=== PATIENT | male | born 1935 | race African-American/Black ===

== ENCOUNTER 2020-06-22 15:05 | Inpatient (IN) | payer MEDICARE ==
[~2020-06-22] VITALS: Ht 191.8 cm; Wt 83.5 kg
[~2020-06-22 15:05] MED LIST: BOUDREAUXS113 GM TP; CARDURA4 MG PO; COUMADIN4 MG OR; COUMADIN5 MG PO; DULCOLAX10 MG/SUPP RC; HUMALOG 30100 UNITS/ SC; HUMULIN 70100 UNIT/1 SQ; LOTRISONE LOTIO30 ML TP; MIRALAX17 GM PO; MOBIC7.5 MG PO; NORCO 10/325 TA1 TA1 PO; ONDANSETRON4 MG/2 M3 IV; OXYCONTIN10 MG PO; PRILOSEC20 MG PO; PROTONIX40 MG PO; SENOKOT-S TABLE1 TAB PO; SODIUM BICARBO650 MG PO; VIBRAMYCIN 100100 MG PO; ZESTRIL20 MG PO; ZOCOR20 MG PO
[2020-06-22 16:11] LABS: BASOPHILS 0.2 % (0-2); EOSINOPHILS 0.9 % (0-7); HEMATOCRIT 27.4 % (42.0-54.0); HEMOGLOBIN 8.6 g/dL (13.5-17.5); IMMATURE GRANULOCYTES 0.1 % (0-5); LYMPHOCYTES 24.3 % (15-50); MCH 23.9 pg (26.0-34.0); MCHC 31.4 g/dL (31.0-37.0); MCV 76.1 fL (80.0-100.0); MONOCYTES 5.7 % (2-11); NEUTROPHILS 68.8 % (40-80); PLATELET COUNT 304 10x3/uL (130-400); RDW 15.1 % (11.5-14.5); WBC 9.4 10x3/uL (4.8-10.8)
[2020-06-22 16:17] VITALS: BP 128/81
[2020-06-22 16:21] LABS: APTT 40.5 SECONDS (22.8-39.4); INR 1.21 (0.85-1.17); PROTIME 15.2 SECONDS (11.6-15.0)
[2020-06-22 16:23] LABS: CALC OSMOLALITY 285 mosm/kg (275-300); CALCIUM 8.5 mg/dL (8.5-10.1); CARBON DIOXIDE 21.3 mmol/L (21.0-32.0); CHLORIDE - SERUM 106 mmol/L (98-107); CREATININE - SERUM 1.9 mg/dL (0.6-1.3); POTASSIUM - SERUM 3.1 mmol/L (3.5-5.1); SODIUM 138 mmol/L (136-145); UREA NITROGEN 41 mg/dL (7-18); eGFR NON AFRICAN AMERICAN 36 mL/min (90-120)
[2020-06-22 16:25] LABS: GLUCOSE 96 mg/dL (74-106)
[2020-06-22 16:44] LABS: ALBUMIN 2.1 g/dL (3.4-5.0); ALKALINE PHOSPHATASE 106 U/L (30-120); ALT (SGPT) 25 U/L (10-68); BILIRUBIN - TOTAL 0.25 mg/dL (0.2-1.3); CKMB 4.1 U/L (0.0-3.6); CREATINE KINASE 310 UL (21-232); MAGNESIUM - SERUM 1.7 mg/dL (1.8-2.4); PROTEIN - SERUM 7.9 g/dL (6.4-8.2)
[2020-06-22 16:47] LABS: TROPONIN-I 2.922 ng/mL (0.000-0.060)
--- NOTE | 2020-06-22 17:57 | NUR ---
PT ASSISTED UP TO THE SIDE OF THE BED TO USE THE URINAL, PT HAD A VERY LARGE SOFT SAN STOOL, AND VOIDED APPROX 350 ML OF URINE, TEENA CARE WAS DONE, AND A COMPLETE LINEN CHANGED
--- NOTE | 2020-06-22 18:05 | NUR ---
PT STATED THAT SHE WAS LEAVING DUE TO OVER HEARING SOMEONE TALKING TO HER BOYFRIEND, PT STATES THAT SHE WANTED HER IV AND DID NOT WANT ANYMORE TREATMENTS. IV REMOVED, CATH INTACT, DRESSING PLACED OVER SITE WITH BLEEDING CONTROLLED. PT AMBUALTED TO THE EXIT WITHOUT DISTRESS OR ASSISSTANCE
[2020-06-22 19:06] VITALS: BP 112/56
--- NOTE | 2020-06-22 19:16 | NUR ---
REPORT TO RAY HENRY
[2020-06-22 21:30] VITALS: BP 111/50
[2020-06-22 22:34] LABS: CKMB 4.5 U/L (0.0-3.6); CREATINE KINASE 331 UL (21-232)
[2020-06-22 22:39] LABS: TROPONIN-I 2.758 ng/mL (0.000-0.060)
[2020-06-23 01:09] VITALS: BP 112/63
--- NOTE | 2020-06-23 02:20 | NUR ---
RECEIVED FROM ER, WILL ASSUME CARE OF PT, IV-20G.-RAC-ALEXEIZEM @5, PLACED ON TELEMTRY, MEDS AND HISTORY COMPLETE, BED IS LOW, SRX2, CALL LIGHT IN REACH, WILL CONTINUE PLAN OF CARE
[2020-06-23] MEDS ORDERED: MAG-OX 400 MG400 MG PO (02:24)
[2020-06-23] MEDS ORDERED: ACETAMINOPHEN325 MG PO (02:25)
[2020-06-23] MEDS ORDERED: LEVEMIR IN100 UNITS/ (02:27)
[2020-06-23] MEDS ORDERED: ASCORBIC ACID500 MG PO (02:28)
[2020-06-23] MEDS ORDERED: NOVOLOG100 UNIT/1 SC (02:30)
[2020-06-23] MEDS ORDERED: ULTRAM50 MG PO (02:31)
[2020-06-23] MEDS ORDERED: ZOCOR20 MG PO (02:32)
[2020-06-23] MEDS ORDERED: SODIUM BICARBO650 MG PO (02:33)
[2020-06-23] MEDS ORDERED: TOPROL XL25 MG PO (02:34)
[2020-06-23] MEDS ORDERED: IMODIUM2 MG (02:36)
[2020-06-23] MEDS ORDERED: BAYER CHEWABLE81 MG PO (02:36)
[2020-06-23] MEDS ORDERED: CHLORTHALIDONE25 MG PO (02:37)
[2020-06-23] MEDS ORDERED: FLOMAX0.4 MG PO (02:39)
[2020-06-23] MEDS ORDERED: MULTI-DAY VITAM1 TAB PO (02:40)
[2020-06-23 04:06] VITALS: BP 107/80; BMI 22.7
--- NOTE | 2020-06-23 08:00 | NUR ---
PT LAYING SUPINE. VERY IRRITABLE AND DEMANDING. STATES HE IS HUNGRY AND THINKS WE ARE TRYING TO KILL HIM BY STARVATION. PT WAS NPO FOR CARDIAC CONSULT. CALLED AND SPOKE WITH DR. FELTON AND HE SAID PT COULD EAT. BROUGHT TRAY IN. ASSISTED WITH SETTING UP MEAL. PT HAD A SOFT BM X1, DANETTE/PALE COLORED. CLEANED UP, LINENS CHANGED. REPOSITIONED TO COMFORT. CALL LIGHT WTIHIN REACH. BED IN LOWEST POSITION. WILL CONTINUE TO MONITOR.
[2020-06-23 09:07] VITALS: BP 130/85
[2020-06-23 09:35] LABS: BASOPHILS 0.3 % (0-2); EOSINOPHILS 1.3 % (0-7); HEMATOCRIT 27.6 % (42.0-54.0); HEMOGLOBIN 8.7 g/dL (13.5-17.5); IMMATURE GRANULOCYTES 0.1 % (0-5); LYMPHOCYTES 28.1 % (15-50); MCH 23.9 pg (26.0-34.0); MCHC 31.5 g/dL (31.0-37.0); MCV 75.8 fL (80.0-100.0); MEAN PLATELET VOLUME 9.6 fL (7.4-10.4); MONOCYTES 8.2 % (2-11); PLATELET COUNT 324 10x3/uL (130-400); RBC 3.64 10x6/uL (4.20-6.10); RDW 15.1 % (11.5-14.5); WBC 7.8 10x3/uL (4.8-10.8)
[2020-06-23 10:07] LABS: ALBUMIN 1.8 g/dL (3.4-5.0); ALKALINE PHOSPHATASE 100 U/L (30-120); ALT (SGPT) 27 U/L (10-68); BILIRUBIN - TOTAL 0.26 mg/dL (0.2-1.3); CALCIUM 8.4 mg/dL (8.5-10.1); CARBON DIOXIDE 24.2 mmol/L (21.0-32.0); CHLORIDE - SERUM 109 mmol/L (98-107); CKMB 3.5 U/L (0.0-3.6); CREATININE - SERUM 1.7 mg/dL (0.6-1.3); POTASSIUM - SERUM 3.1 mmol/L (3.5-5.1); PROTEIN - SERUM 7.2 g/dL (6.4-8.2); SODIUM 141 mmol/L (136-145); UREA NITROGEN 37 mg/dL (7-18); eGFR NON AFRICAN AMERICAN 41 mL/min (90-120)
[2020-06-23 10:17] LABS: CALC OSMOLALITY 287 mosm/kg (275-300); CREATINE KINASE 238 UL (21-232)
[2020-06-23 10:18] LABS: GLUCOSE 71 mg/dL (74-106); TROPONIN-I 2.781 ng/mL (0.000-0.060)
[2020-06-23 11:54] VITALS: BP 119/62
[2020-06-23 15:23] LABS: CKMB 3.5 U/L (0.0-3.6); CREATINE KINASE 240 UL (21-232)
[2020-06-23 15:25] LABS: TROPONIN-I 2.603 ng/mL (0.000-0.060)
[2020-06-23 15:53] VITALS: BP 138/76
--- NOTE | 2020-06-23 16:43 | NUR ---
I have reviewed this patient and I concur with the Shift Assessment completed by the Licensed Practical Nurse today this shift.
--- NOTE | 2020-06-23 19:30 | NUR ---
RECEIVED REPORT, WILL ASSUME CARE OF PT, ASSISTED CHOKE SETTER WITH CLEANING PT UP, DENIES ANY NEEDS, BED IS LOW, SRX2, CALL LIGHT IN REACH, WILL CONTINUE PLAN OF CARE
[2020-06-23 21:30] VITALS: BP 132/70
[2020-06-24] VITALS (7 sets, daily range): BP systolic 103–175; BP diastolic 49–62; BMI 22.7
--- NOTE | 2020-06-24 03:31 | NUR ---
I have reviewed this patient and I concur with the Shift Assessment completed by the Licensed Practical Nurse today this shift.
--- NOTE | 2020-06-24 07:20 | NUR ---
RECIEVE REPORT. ALERT AND ORIENTED X4. SITTING UP IN BED. CARDIZEM INFUSING @ 5mL/HR. 84 SINUS RYTHM ON TELEMETRY. DENIES ANY NEEDS AT THIS TIME. CONTINUE PLAN OF CARE AND SAFETY PRECAUTIONS.
[2020-06-24 07:32] LABS: BASOPHILS 0.2 % (0-2); EOSINOPHILS 0.8 % (0-7); HEMATOCRIT 26.8 % (42.0-54.0); HEMOGLOBIN 8.4 g/dL (13.5-17.5); IMMATURE GRANULOCYTES 0.1 % (0-5); LYMPHOCYTES 23.9 % (15-50); MCH 23.9 pg (26.0-34.0); MCHC 31.3 g/dL (31.0-37.0); MCV 76.1 fL (80.0-100.0); MEAN PLATELET VOLUME 9.1 fL (7.4-10.4); MONOCYTES 8.8 % (2-11); NEUTROPHILS 66.2 % (40-80); PLATELET COUNT 304 10x3/uL (130-400); RBC 3.52 10x6/uL (4.20-6.10); RDW 15.4 % (11.5-14.5)
[2020-06-24 07:44] LABS: ANION GAP 11.1 mmol/L (8-16); CALCIUM 8.1 mg/dL (8.5-10.1); CREATININE - SERUM 1.8 mg/dL (0.6-1.3); POTASSIUM - SERUM 3.1 mmol/L (3.5-5.1)
--- NOTE | 2020-06-24 15:51 | NUR ---
ALERT AND ORIENTED X4. BEDBATH AND LINEN CHANGE COMPLETE. VERY ARGUMENTATIVE TO STAFF DURING BATH. SPOKE WITH YVES AT [facility]. YVES STATES, "HE MUST BE FEELING BETTER BECAUSE THAT IS HIS BASELINE." SINUS RYTHM ON TELEMETRY. CONTINUE PLAN OF CARE AND SAFETY PRECAUTIONS.
--- NOTE | 2020-06-24 19:30 | NUR ---
RECEIVED REPORT, WILL ASSUME CARE OF PT, CLEANED PT UP, DENIES ANY OTHER NEEDS AT THIS TIME, BED IS LOW, SRX2, CALL LIGHT IN REACH, WILL CONTINUE PLAN OF CARE
--- NOTE | 2020-06-24 19:38 | NUR ---
PT GAVE VERBAL CONSENT FOR ME TO SPEAK WITH KATLYN FAULKNER [phone]
[2020-06-25 08:17] VITALS: BP 113/56
--- NOTE | 2020-06-25 08:19 | NUR ---
PT RECEIVED AT SHIFT CHANGE ASKING FOR BREAKFAST. INFORMED TRAY WILL BE ON FLOOR AROUND 8 AM. UPSET WITH THAT AND WANTS HIS BREAKFAST NOW. TRAY TAKEN IN SOON ARRIVED TO FLOOR.
--- NOTE | 2020-06-25 08:59 | CN ---
PATIENT NAME:KAROL FAULKNER MEDICAL RECORD: [id number] : 37 LOCATION:D. D.2133 ADMIT DATE: 06/22/20 ACCOUNT: [id number] CONSULTING PHYSICIAN: JENNIFER FELTON MD REFERRING PHYSICIAN: KENZIE ROQUE MD DATE OF CONSULTATION: 06/23/2020 HISTORY OF PRESENT ILLNESS: An 84-year-old gentleman with no known history of coronary artery disease. He has a history of hypertension, diabetes mellitus, and hyperlipidemia. During a routine evaluation at [facility], he was found to have SVT. 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 He also has a history of chronic anemia. Denies chest pain. Some mild dyspnea. We are asked to see him concerning his cardiovascular status. PAST MEDICAL HISTORY: Includes: 1. History of hypertension. 2. Hyperlipidemia. 3. Diabetes mellitus. 4. Osteoarthritis. MEDICATIONS: Include Cardura 4 mg p.o. q. day, simvastatin 20 q. day, metoprolol 12.5 q. day, tramadol 50 q.6 p.r.n., aspirin 81 q. day, chlorthalidone 25 q. day, insulin 25 units q.a.m. SOCIAL HISTORY: Currently, he lives in a [facility]. He has never smoked or drank. REVIEW OF SYSTEMS: The patient reports easy bruising but reports no swollen glands. The patient reports no fever, no night sweats, no significant weight gain, no significant weight loss. No significant exercise tolerance. The patient reports no dry eyes, no irritation, no vision change. Patient reports no difficulty hearing and no ear pain. Patient reports no frequent nose bleeds or nose and sinus problems. Patient reports no arm pain on exertion. No shortness of breath while lying down. No history of heart murmur. Patient reports no cough, no wheezing or coughing up blood. Patient reports no abdominal pain, no vomiting. Normal appetite. No diarrhea and not vomiting blood. No nausea and no constipation. Patient reports no incontinence. No difficulty urinating. No hematuria. No increased frequency. Patient reports no muscle aches. No weakness, no arthralgias, no back pain. No swelling of the extremities. Patient reports no abnormal mole, no jaundice, no rashes. Reports no loss of consciousness. No weakness and no numbness. No seizures, dizziness, or headaches. The patient reports no depression, no sleep disturbance, feeling safe in a relationship and no alcohol abuse. Patient reports no fatigue. Reports no runny nose or sinus pressure. No itching, no hives, and no frequent sneezing. PHYSICAL EXAMINATION: GENERAL: Pleasant, in no acute distress, appears stated age. VITAL SIGNS: 119/62, pulse 118 and regular. HEENT: Normocephalic, atraumatic. NECK: No JVD or bruit. HEART: Regular, tachycardic, II/ systolic ejection murmur. LUNGS: Good air excursion. CONSULT REPORT [id number] KAROL FAULKNER ABDOMEN: Soft, nontender. EXTREMITIES: Pulses 2+. There is no edema. IMPRESSION AND PLAN: Supraventricular tachycardia. 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 He is on Cardizem drip. We will load with sotalol. COVID is pending. May need angiography at some point. NTS:[id number] Voice Confirmation ID: [id number] DOCUMENT ID: [id number] JENNIFER FELTON MD at 0859 CC: [id number] DICTATION DATE: 06/23/20 1233 RADIOLOGIST PHYSICIAN: 06/24/20 0138 ADM IN [place] [id number] [place] [address]
--- NOTE | 2020-06-25 08:59 | EC ---
PATIENT:KAROL FAULKNER DATE OF SERVICE: 06/22/20 SEX: M MEDICAL RECORD: [id number] DATE OF : 37 LOCATION:D.M2 D.213 AGE OF PATIENT: 84 ADMISSION DATE: 06/22/20 REFERRING PHYSICIAN: INTERPRETING PHYSICIAN: JENNIFER FELTON MD ECHOCARDIOGRAM REPORT ECHO CHARGES 4 ECHO COMPLETE Date: 06/23/20 CLINICAL DIAGNOSIS: NSTEMI ECHOCARDIOGRAPHIC MEASUREMENTS (adult normal given) AC root (d.<3.7cm) 3.5 cm LV Septum d (<1.2 cm> 1.5 cm Valve Excursion 1.4 cm LV Septum (systole) 1.8 cm Left Atria (s.<4.0cm> 3.9 cm LVPW d(<1.2cm) 1.8 cm RV (d.<2.3cm) 3.8 cm LVPW (sytole) 1.9 cm LV diastole(<5.6CM) 3.7 cm MV E-F(>70mm/sec) cm LV systole 2.6 cm LVOT Diameter 2.0 cm MV exc.(>10mm) 1.4 cm Est.ejection fraction (50-75%) % DOPPLER: LVIT cm/sec A cm/sec E 132.0 cm/sec LA cm/sec RVSP 31 mmHg LVOT 100 cm/sec AOP1/2T m/s Asc. Ao 153 cm/sec RVOT 107 cm/sec RA cm/sec PA 129 cm/sec AV Gradient Peak 9.31 mmHg AV Mean 5.79 mmHg AV Area 1.9 cm MV Gradient Peak 7.83 mmHg MV Mean 3.21 mmHg MV Area cm COMMENTS: Avionics Integration Engineer: 2 JOSE POTTS Home Designer: 3 Dr. Simons TAPE# PACS Pericardial Effusion Y DATE OF SERVICE: Adequate 2D, color flow imaging, spectral Doppler, and M-Mode. LVH is present. LV internal dimensions are normal. Wall motion is normal. EF is greater than or equal to 55%. Aortic valve is sclerotic. No evidence of stenosis by Doppler interrogation. Left atrium is normal at 3.9 cm. Mitral valve shows no prolapse. Mild MR. Right-sided chamber is grossly normal. Mild TR. Incidental note is made of small pericardial effusion of no hemodynamic significance. ECHOCARDIOGRAM REPORT [id number] KAROL FAULKNER TRANSINT:[id number] Voice Confirmation ID: [id number] DOCUMENT ID: [id number] JENNIFER FELTON MD at 0859 CC: [id number] DICTATION DATE: 06/24/20 122 AVIONICS SYSTEMS ENGINEER: 06/24/20 2146 ADM IN [facility] [address] [place] [address]
[2020-06-25 11:22] VITALS: BP 108/60
[2020-06-25 16:08] VITALS: BP 126/71
--- NOTE | 2020-06-25 19:30 | NUR ---
PT IN BED, EYES CLOSED, RESP EVEN AND UNLABORED, NO DISTRESS NOTED, CL IN REACH, SR UP X 2.
[2020-06-25 20:00] VITALS: BP 118/62
--- NOTE | 2020-06-25 21:05 | NUR ---
PT PULLED IV OUT AT THIS TIME TO RIGHT AC, 22G IV PLACED TO RIGHT FOREARM AT THIS TIME.
--- NOTE | 2020-06-25 23:03 | NUR ---
LANE KNOX PAGED AT THIS TIME, PT HEARTRATE IN 40'S. CARDIZEM DRIP CHANGED TO 2.5MG/HR
[2020-06-26] VITALS: BP 130/62
[2020-06-26 04:00] VITALS: BP 127/69
[2020-06-26 04:41] LABS: BASOPHILS 0.2 % (0-2); EOSINOPHILS 0.3 % (0-7); HEMATOCRIT 25.6 % (42.0-54.0); HEMOGLOBIN 7.9 g/dL (13.5-17.5); IMMATURE GRANULOCYTES 0.2 % (0-5); LYMPHOCYTES 25.4 % (15-50); MCH 23.6 pg (26.0-34.0); MCHC 30.9 g/dL (31.0-37.0); MCV 76.4 fL (80.0-100.0); MEAN PLATELET VOLUME 9.6 fL (7.4-10.4); MONOCYTES 5.6 % (2-11); NEUTROPHILS 68.3 % (40-80); PLATELET COUNT 310 10x3/uL (130-400); RBC 3.35 10x6/uL (4.20-6.10); RDW 15.6 % (11.5-14.5); WBC 11.1 10x3/uL (4.8-10.8)
[2020-06-26 05:01] LABS: ANION GAP 12.1 mmol/L (8-16); CALCIUM 8.4 mg/dL (8.5-10.1); CARBON DIOXIDE 23.6 mmol/L (21.0-32.0); CREATININE - SERUM 1.6 mg/dL (0.6-1.3)
[2020-06-26 05:10] LABS: POTASSIUM - SERUM 3.7 mmol/L (3.5-5.1)
--- NOTE | 2020-06-26 08:46 | MORECARE ---
CASE MANAGEMENT DISCHARGE SUMMARY PATIENT: KAROL FAULKNER UNIT: [id number] ADM DATE: 06/22/20 AGE: 84 : 36 SEX: M ROOM/BED: D.2133 AUTHOR: ARMANI PATTERSON PHYSICIAN: REFERRING PHYSICIAN: KENZIE ROQUE MD DATE OF SERVICE: 06/26/20 Discharge Plan Patient Name: KAROL FAULKNER [facility] [facility] 1935 Planned Disposition: Group Home Facility Anticipated Discharge Date: Discharge Date: Expected LOS: Initial Reviewer: [email or web address] Initial Review Date: 06/22/2020 Generated: 06/26/20 9:45 am Patient Name: KAROL FAULKNER Page [phone] at 0846 All edits/amendments must be made on the electronic document DICTATION DATE: 06/26/20844 FIRE FIGHTING EQUIPMENT SPECIALIST: IRENA 06/26/20844 RPT#: [id number] DC DATE: STATUS: ADM IN [facility] [address] [place] [address] END OF REPORT
--- NOTE | 2020-06-26 08:52 | MORECARE ---
CASE MANAGEMENT DISCHARGE SUMMARY PATIENT: KAROL FAULKNER UNIT: [id number] ADM DATE: 06/22/20 AGE: 84 : 36 SEX: M ROOM/BED: D.2133 AUTHOR: ARMANI PATTERSON PHYSICIAN: REFERRING PHYSICIAN: KENZIE ROQUE MD DATE OF SERVICE: 06/26/20 Discharge Plan Patient Name: KAROL FAULKNER [facility] [facility] 1935 Planned Disposition: Long-Term Facility Anticipated Discharge Date: Discharge Date: Expected LOS: Initial Reviewer: [email or web address] Initial Review Date: 06/22/2020 Generated: 06/26/20 9:51 am Last DP export: 06/26/20 7:46 a Patient Name: KAROL FAULKNER Page [phone] at 0852 All edits/amendments must be made on the electronic document DICTATION DATE: 06/26/20851 AUTOMATIC DRY STARCH OPERATOR: IRENA 06/26/20851 RPT#: [id number] DC DATE: STATUS: ADM IN [facility] [address] [place] [address] END OF REPORT
[2020-06-26 08:53] VITALS: BP 131/65
--- NOTE | 2020-06-26 08:59 | MORECARE ---
CASE MANAGEMENT DISCHARGE SUMMARY PATIENT: KAROL FAULKNER UNIT: [id number] ADM DATE: 06/22/20 AGE: 84 : 36 SEX: M ROOM/BED: D.2133 AUTHOR: ARMANI PATTERSON PHYSICIAN: REFERRING PHYSICIAN: KENZIE ROQUE MD DATE OF SERVICE: 06/26/20 Discharge Plan Patient Name: KAROL FAULKNER [facility] [facility] 1935 Planned Disposition: Retirement Facility Anticipated Discharge Date: Discharge Date: Expected LOS: Initial Reviewer: [email or web address] Initial Review Date: 06/22/2020 Generated: 06/26/20 9:58 am External Providers External Provider: [facility] Next Contact Date: Service Request Date: Service Type: Resolution: Reviewer: Comments: Last DP export: 06/26/20 7:52 a Patient Name: KAROL FAULKNER Page [phone] at 0859 All edits/amendments must be made on the electronic document DICTATION DATE: 06/26/20857 FOOD CHEMIST: IRENA 06/26/20857 RPT#: [id number] DC DATE: STATUS: ADM IN [facility] [address] [place] [address] END OF REPORT
--- NOTE | 2020-06-26 09:06 | MORECARE ---
CASE MANAGEMENT DISCHARGE SUMMARY PATIENT: KAROL FAULKNER UNIT: [id number] ADM DATE: 06/22/20 AGE: 84 : 36 SEX: M ROOM/BED: D.2133 AUTHOR: ARMANI PATTERSON PHYSICIAN: REFERRING PHYSICIAN: KENZIE ROQUE MD DATE OF SERVICE: 06/26/20 Discharge Plan Patient Name: KAROL FAULKNER Facility: [facility]:[place] : 1935 Planned Disposition: Care Home Facility Anticipated Discharge Date: Discharge Date: Expected LOS: Initial Reviewer: [email or web address] Initial Review Date: 06/22/2020 Generated: 06/26/20 10:05 am Comments DCP- Discharge Planning Updated by [email or web address]: Alejandra Gandhi on 06/26/20 8:[address] Patient Name: KAROL FAULKNER Admission Status: ER Accout number: [id number] Admission Date: 06-22-2020 : 1935 Admission Diagnosis:UNSPECIFIED ATRIAL FIBRILLATION Attending: HORACE Current LOS: 4 Anticipated DC Date: Planned Disposition: Care Home Facility [facility] Discharge Planning Comments: Patient is a resident at [facility]pc and rehab. CM called facility and spoke with Yana at [phone]. CM provided updates and faxed clinicals. CM will continue to assist in dc planning/needs. Alejandra RUTLEDGE,RN,CM Cyber Security Engineer: Alejandra Gandhi Last DP export: 06/26/20 7:59 a Patient Name: KAROL FAULKNER Page [phone] at 0906 All edits/amendments must be made on the electronic document DICTATION DATE: 06/26/20904 SPECIAL NEEDS CAREGIVER: IRENA 06/26/20904 RPT#: [id number] DC DATE: STATUS: ADM IN [facility] [address] [place] [address] END OF REPORT
[2020-06-26 12:27] VITALS: BP 114/70
--- NOTE | 2020-06-26 19:30 | NUR ---
PT IN BED, AAO X 3, RESP EVEN AND UNLABORED, NO DISTRESS NOTED, CL IN REACH, SR UP X 2.
--- NOTE | 2020-06-26 19:30 | NUR ---
PT IN BED, AAO X 2, RESP EVEN AND UNLABORED, NO DISTRESS NOTED, CL IN REACH, SR UP X 2.
[2020-06-26 20:00] VITALS: BP 135/71
--- NOTE | 2020-06-26 21:28 | NUR ---
CHELSEA KNOX CALLED TO REPORT BLOODSUGAR OF 409, 15 UNITS REGULAR INSULIN ORDERED AT THIS TIME.
[2020-06-27 04:00] VITALS: BP 136/69
[2020-06-27 06:46] LABS: BASOPHILS 0.1 % (0-2); EOSINOPHILS 0 % (0-7); HEMATOCRIT 28.6 % (42.0-54.0); HEMOGLOBIN 8.6 g/dL (13.5-17.5); IMMATURE GRANULOCYTES 0.2 % (0-5); LYMPHOCYTES 17.6 % (15-50); MCH 23.1 pg (26.0-34.0); MCHC 30.1 g/dL (31.0-37.0); MCV 76.7 fL (80.0-100.0); MEAN PLATELET VOLUME 9.9 fL (7.4-10.4); MONOCYTES 7.1 % (2-11); PLATELET COUNT 322 10x3/uL (130-400); RBC 3.73 10x6/uL (4.20-6.10); RDW 15.7 % (11.5-14.5); WBC 11.2 10x3/uL (4.8-10.8)
[2020-06-27 07:32] LABS: CALC OSMOLALITY 281 mosm/kg (275-300); CALCIUM 8.7 mg/dL (8.5-10.1); CARBON DIOXIDE 24.7 mmol/L (21.0-32.0); CHLORIDE - SERUM 105 mmol/L (98-107); CREATINE KINASE 92 UL (21-232); CREATININE - SERUM 1.7 mg/dL (0.6-1.3); GLUCOSE 77 mg/dL (74-106); SODIUM 136 mmol/L (136-145); UREA NITROGEN 44 mg/dL (7-18); eGFR NON AFRICAN AMERICAN 41 mL/min (90-120)
[2020-06-27 07:35] LABS: POTASSIUM - SERUM 4.4 mmol/L (3.5-5.1); TROPONIN-I 2.129 ng/mL (0.000-0.060)
[2020-06-27 08:04] VITALS: BP 125/72
--- NOTE | 2020-06-27 08:13 | NUR ---
RECIEVED PT IN BED RESTING NO COMPLAINTS AT THIS TIME.
[2020-06-27 12:17] VITALS: BP 126/70
--- NOTE | 2020-06-27 14:14 | NUR ---
Nutrition Follow-up: Pt in droplet isolation; covid-19+. Recorded PO intake is good. Diet: Diabetic PO intake: 100% x 5 meals Wt: 184# (06/24) Labs noted: Glu 210 Meds noted: MagOx, Lantus, Humulin, Protonix -RD following.
[2020-06-27 15:09] VITALS: Ht 191.8 cm; Wt 83.5 kg
[2020-06-27 16:14] VITALS: BP 121/62
--- NOTE | 2020-06-27 19:30 | NUR ---
PT IN BED, RESP EVEN AND UNLABORED, PT TURNED AND REPOSITIONED, NO DISTRESS NOTED, CL IN REACH, SR UP X 2.
[2020-06-27 20:00] VITALS: BP 120/64
[2020-06-28 04:00] VITALS: BP 129/74
[2020-06-28 08:26] VITALS: BP 130/78
--- NOTE | 2020-06-28 08:31 | NUR ---
0704-LYING IN BED W/EYES CLOSED, AROUSES EASILY W/TACTILE STIMULI. NO DISTRESS NOTED.
[2020-06-28 14:54] VITALS: BP 129/72
--- NOTE | 2020-06-28 18:54 | NUR ---
CONTACTED DR ROQUE ABOUT PT'S CH BG 468 AWAITING A CALL BACK
--- NOTE | 2020-06-28 18:56 | NUR ---
1827-PT'S BG CH 468, COVERED/SS, ORDERED STAT BG, AND WILL CONTACT DR ROQUE
--- NOTE | 2020-06-28 19:12 | NUR ---
DR ROQUE CONTACTED THIS NURSE REGARDING ELEVATED BS, NO NEW ORDERS.
--- NOTE | 2020-06-28 19:31 | NUR ---
RECIEVED UP IN BED WITH EYES OPEN AND TV ON. HAD A BM. CLEANED AND REPOSITIONED. ALERT AND ORIENTED TO TIME AND SITUATION. O2@ 2 LITERS PER N/C IN PLACE. URINAL AT BEDSIDE. TELEMETRY IN PLACE. DENIES ANY NEEDS AT THIS TIME.
--- NOTE | 2020-06-28 19:43 | MORECARE ---
CASE MANAGEMENT DISCHARGE SUMMARY PATIENT: KAROL FAULKNER UNIT: [id number] ADM DATE: 06/22/20 AGE: 84 : 36 SEX: M ROOM/BED: D.2133 AUTHOR: ARMANI PATTERSON PHYSICIAN: REFERRING PHYSICIAN: KENZIE ROQUE MD DATE OF SERVICE: 06/28/20 Discharge Plan Patient Name: KAROL FAULKNER [facility] [facility] 1935 Planned Disposition: Halfway Facility Anticipated Discharge Date: Discharge Date: Expected LOS: Initial Reviewer: [email or web address] Initial Review Date: 06/22/2020 Generated: 06/28/20 8:42 pm Comments DCP- Discharge Planning Updated by [email or web address]: Alejandra Gandhi on 06/26/20 8:[address] Patient Name: KAROL FAULKNER Admission Status: ER Accout number: [id number] Admission Date: 06-22-2020 : 1935 Admission Diagnosis:UNSPECIFIED ATRIAL FIBRILLATION Attending: HORACE Current LOS: 4 Anticipated DC Date: Planned Disposition: Halfway Facility [facility] Discharge Planning Comments: Patient is a resident at [facility] long term and rehab. CM called facility and spoke with Yana at [phone]. CM provided updates and faxed clinicals. CM will continue to assist in dc planning/needs. Alejandra RUTLEDGE,RN,CM Medical Affairs Director: Alejandra Gandhi Last DP export: 06/26/20 8:06 a Patient Name: KAROL FAULKNER Page [phone] at 1943 All edits/amendments must be made on the electronic document DICTATION DATE: 06/28/201941 FASHION DESIGNER: IRENA 06/28/201941 RPT#: [id number] DC DATE: STATUS: ADM IN [address] [place] [address] END OF REPORT
[2020-06-28 20:30] VITALS: BP 138/76
[2020-06-29 00:33] VITALS: BP 130/70
[2020-06-29 04:30] VITALS: BP 116/77
--- NOTE | 2020-06-29 07:00 | NUR ---
RECEIVED REPORT. ASSUMED CARE OF PATIENT. PATIENT REMAINS IN DROPLET ISOLATION FOR COVID-19.
[2020-06-29 08:23] VITALS: BP 121/79
--- NOTE | 2020-06-29 09:17 | NUR ---
FSBS 100. LANTUS ADMINISTERED. PATIENT CONSUMING AM MEAL. DR. ROQUE HERE FOR AM ROUNDS.
--- NOTE | 2020-06-29 09:58 | MORECARE ---
CASE MANAGEMENT DISCHARGE SUMMARY PATIENT: KAROL FAULKNER UNIT: [id number] ADM DATE: 06/22/20 AGE: 84 : 36 SEX: M ROOM/BED: D.2133 AUTHOR: ARMANI PATTERSON PHYSICIAN: REFERRING PHYSICIAN: KENZIE ROQUE MD DATE OF SERVICE: 06/29/20 Discharge Plan Patient Name: KAROL FAULKNER Facility: [facility]:[place] : 1935 Planned Disposition: Shelter Facility Anticipated Discharge Date: Discharge Date: Expected LOS: Initial Reviewer: [email or web address] Initial Review Date: 06/22/2020 Generated: 06/29/20 10:58 am Comments DCP- Discharge Planning Updated by [email or web address]: Glen Graves on 06/29/20 8:[address] Spoke with Apoorva ([phone]) regarding patient return to facility and transport coordination. Apoorva states that transport is an issue because they have no line haul driver on the weekends. Apoorva states that she will cb with alternative means. Will await call. Return call from [facility] stating that no transport is available. Will notify nursing staff that transport via EMS will be needed. CM will continue to follow and will assist as needed with dc plans/needs. DCP- Discharge Planning Updated by [email or web address]: Alejandra Gandhi on 06/26/20 8:[address] Patient Name: KAROL FAULKNER Admission Status: ER Accout number: [id number] Admission Date: 06-22-2020 : 1935 Admission Diagnosis:UNSPECIFIED ATRIAL FIBRILLATION Attending: HORACE Current LOS: 4 Anticipated DC Date: Planned Disposition: Shelter Facility Primary Insurance: [employer] MEDICARE ADV Discharge Planning Comments: Patient is a resident at [facility] and rehab. CM called facility and spoke with Yana at [phone]. CM provided updates and faxed clinicals. CM will continue to assist in dc planning/needs. Alejandra Gandhi MSN,RN,CM Route Sales Driver: Alejandra Gandhi Last DP export: 06/28/20 6:43 p Patient Name: KAROL FAULKNER Page [phone] at 0958 All edits/amendments must be made on the electronic document DICTATION DATE: 06/29/20957 MEDICAL PSYCHOTHERAPIST: IRENA 06/29/20957 RPT#: [id number] DC DATE: STATUS: ADM IN [facility] [address] [place] [address] END OF REPORT
--- NOTE | 2020-06-29 11:21 | NUR ---
FSBS 232. 4 UNITS HUMULIN ADMINISTERED PER SLIDING SCALE.
[2020-06-29 12:18] VITALS: BP 107/57
--- NOTE | 2020-06-29 15:05 | MORECARE ---
CASE MANAGEMENT DISCHARGE SUMMARY PATIENT: KAROL FAULKNER UNIT: [id number] ADM DATE: 06/22/20 AGE: 84 : 36 SEX: M ROOM/BED: D.2133 AUTHOR: ARMANI PATTERSON PHYSICIAN: REFERRING PHYSICIAN: KENZIE ROQUE MD DATE OF SERVICE: 06/29/20 Discharge Plan Patient Name: KAROL FAULKNER Facility: [facility]:[place] : 1935 Planned Disposition: Chcf Facility Anticipated Discharge Date: Discharge Date: Expected LOS: Initial Reviewer: [email or web address] Initial Review Date: 06/22/2020 Generated: 06/29/20 4:04 pm Comments DCP- Discharge Planning Updated by [email or web address]: Glen Graves on 06/29/20 8:[address] Spoke with Apoorva ([phone]) regarding patient return to facility and transport coordination. Apoorva states that transport is an issue because they have no wire galvanizer on the weekends. Apoorva states that she will cb with alternative means. Will await call. Return call from [facility] stating that no transport is available. Will notify nursing staff that transport via EMS will be needed. CM will continue to follow and will assist as needed with dc plans/needs. DCP- Discharge Planning Updated by [id number]: Alejandra Gandhi on 06/26/20 8:[address] Patient Name: KAROL FAULKNER Admission Status: ER Accout number: [id number] Admission Date: 06-22-2020 : 1935 Admission Diagnosis:UNSPECIFIED ATRIAL FIBRILLATION Attending: HORACE Current LOS: 4 Anticipated DC Date: Planned Disposition: Chcf Facility Primary Insurance: [employer] MEDICARE ADV Discharge Planning Comments: Patient is a resident at [facility] half-way and rehab. CM called facility and spoke with Yana at [phone]. CM provided updates and faxed clinicals. CM will continue to assist in dc planning/needs. Alejandra Gandhi MSN,RN,CM Residential Caregiver: Alejandra Gandhi Last DP export: 06/29/20 8:58 Patient Name: KAROL FAULKNER Page [phone] at 1505 All edits/amendments must be made on the electronic document DICTATION DATE: 06/29/201503 BRILLIANDEER LOPPER: IRENA 06/29/201503 RPT#: [id number] DC DATE: STATUS: ADM IN [facility] [address] [place] [address] END OF REPORT
--- NOTE | 2020-06-29 15:12 | MORECARE ---
CASE MANAGEMENT DISCHARGE SUMMARY PATIENT: KAROL FAULKNER UNIT: [id number] ADM DATE: 06/22/20 AGE: 84 : 36 SEX: M ROOM/BED: D.2133 AUTHOR: YESENIA,DOC PHYSICIAN: REFERRING PHYSICIAN: KENZIE ROQUE MD DATE OF SERVICE: 06/29/20 Discharge Plan Patient Name: KAROL FAULKNER Facility: [facility]:[place] : 1935 Planned Disposition: Retirement Facility Anticipated Discharge Date: Discharge Date: Expected LOS: Initial Reviewer: [email or web address] Initial Review Date: 06/22/2020 Generated: 06/29/20 4:11 pm Comments DCP- Discharge Planning Updated by [email or web address]: Glen Graves on 06/29/20 2:[address] Patient Name: KAROL FAULKNER Encounter No: [id number] : 1935 Primary Insurance: [employer] MEDICARE ADV Anticipated DC Date: Planned Disposition: Retirement Facility External Planned Provider: : DCP follow-up note: Clinicals faxed to [facility]. Patient to return to medicare bed. CM will continue to follow and will assist as needed with dc plans/needs. Glen Graves DCP- Discharge Planning Updated by [email or web address]: Glen Graves on 06/29/20 8:[address] Spoke with Matthewvladislav ([phone]) regarding patient return to facility and transport coordination. Matthewvladislav states that transport is an issue because they have no bulk delivery driver on the weekends. Apoorva states that she will cb with alternative means. Will await call. Return call from Apoorva stating that no transport is available. Will notify nursing staff that transport via EMS will be needed. CM will continue to follow and will assist as needed with dc plans/needs. DCP- Discharge Planning Updated by [email or web address]: Alejandra Gandhi on 06/26/20 8:[address] Patient Name: KAROL FAULKNER Admission Status: ER Accout number: [id number] Admission Date: 06-22-2020 : 1935 Admission Diagnosis:UNSPECIFIED ATRIAL FIBRILLATION Attending: HORACE Current LOS: 4 Anticipated DC Date: Planned Disposition: Retirement Facility Primary Insurance: [employer] MEDICARE ADV Discharge Planning Comments: Patient is a resident at [facility] fdc and rehab. CM called facility and spoke with Yana at [phone]. CM provided updates and faxed clinicals. CM will continue to assist in dc planning/needs. Alejandra Gandhi MSN,RN,CM Clothing Designer: Alejandra Gandhi Last DP export: 06/29/20 2:05 Patient Name: KAROL FAULKNER Page [phone] at 1512 All edits/amendments must be made on the electronic document DICTATION DATE: 06/29/201510 BRAZING MACHINE OPERATOR HELPER: IRENA 06/29/201510 RPT#: [id number] DC DATE: STATUS: ADM IN [facility] [address] [place] [address] END OF REPORT
[2020-06-29] MEDS ORDERED: BETAPACE 80 MG80 MG PO (15:31)
[2020-06-29] MEDS ORDERED: SYMBICORT 16010.2 GM INH (15:31)
[2020-06-29] MEDS ORDERED: CALMOSEPTINE OI71 GM TOPICAL (15:31)
--- NOTE | 2020-06-29 15:45 | NUR ---
22 GAUGE IV REMOVED FROM RIGHT FOREARM. CATHETER TIP INTACT. NO BLEEDING FROM SITE. 2X2 GAUZE APPLIED AND SECURED WITH BANDAID. NO DISTRESS. TOLERATED IV REMOVAL WELL.
--- NOTE | 2020-06-29 16:00 | NUR ---
REPORT CALLED TO RUBINA AT [facility]. REPORT CALLED TO [facility] FOR TRANSPORT. EMS ETA IS ABOUT 1 HOUR.
--- NOTE | 2020-06-29 16:20 | NUR ---
FSBS 296. 6 UNITS HUMULIN ADMINISTERED PER SLIDING SCALE.
--- NOTE | 2020-06-29 16:44 | NUR ---
PATIENT LEFT VIA [facility] WITH EMS AT THIS TIME. PT TRANSPORTED BACK TO [facility] IN [place].
--- NOTE | 2020-07-01 08:57 | MORECARE ---
CASE MANAGEMENT DISCHARGE SUMMARY PATIENT: KAROL FAULKNER UNIT: [id number] ADM DATE: 06/22/20 AGE: 84 : 37 SEX: M ROOM/BED: D.2133 AUTHOR: YESENIA,DOC PHYSICIAN: REFERRING PHYSICIAN: KENZIE ROQUE MD DATE OF SERVICE: 07/01/20 Discharge Plan Patient Name: KAROL FAULKNER Facility: [facility]:[place] : 1935 Planned Disposition: Halfway Facility Anticipated Discharge Date: Discharge Date: 06/29/2020 Expected LOS: Initial Reviewer: [email or web address] Initial Review Date: 06/22/2020 Generated: 07/01/20 9:56 am Comments DCP- Discharge Planning Updated by [email or web address]: Glen Graves on 06/29/20 2:[address] Patient Name: KAROL FAULKNER Encounter No: [id number] : 1935 Primary Insurance: [employer] ADV Anticipated DC Date: Planned Disposition: Halfway Facility External Planned Provider: : DCP follow-up note: Clinicals faxed to [facility]. Patient to return to medicare bed. CM will continue to follow and will assist as needed with dc plans/needs. Glen Graves DCP- Discharge Planning Updated by [email or web address]: Glen Graves on 06/29/20 8:[address] Spoke with Apoorva ([phone]) regarding patient return to facility and transport coordination. 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 Apoorva states that she will cb with alternative means. Will await call. Return call from Apoorva stating that no transport is available. Will notify nursing staff that transport via EMS will be needed. CM will continue to follow and will assist as needed with dc plans/needs. DCP- Discharge Planning Updated by [email or web address]: Alejandra Gandhi on 06/26/20 8:[address] Patient Name: KAROL FAULKNER Admission Status: ER Accout number: [id number] Admission Date: 06-22-2020 : 1935 Admission Diagnosis:UNSPECIFIED ATRIAL FIBRILLATION Attending: HORACE Current LOS: 4 Anticipated DC Date: Planned Disposition: Halfway Facility Primary Insurance: [employer] ADV Discharge Planning Comments: Patient is a resident at [facility]. CM called facility and spoke with Yana at [phone]. CM provided updates and faxed clinicals. CM will continue to assist in dc planning/needs. Alejandra Gandhi MSN,RN,CM Cartographic Engineer: Alejandra Gandhi Last DP export: 06/29/20 2:12 Patient Name: KAROL FAULKNER Page [id number] at 0857 All edits/amendments must be made on the electronic document DICTATION DATE: 07/01/20855 COMPLIANCE INVESTIGATOR: IRENA 07/01/20855 RPT#: [id number] DC DATE:06/29/20 STATUS: DIS IN [facility] [address] [place] [address] END OF REPORT
== END 2020-06-29 16:30 | DRG 280 ==
LOC: D.ER 15:05 → D.EDHOLD 17:21 → D.M2 17:21 → D.MS 06-23 00:23 → D.M2 06-23 00:50
PROVIDERS: Family Medicine; Legal Medicine; ADMIT Emergency Medicine; ATTEND Emergency Medicine
DX: I21.3 ST elevation (STEMI) myocardial infarction of unspecified site (principal); U07.1 COVID-19; J12.89 Other viral pneumonia; I47.1 Supraventricular tachycardia; I48.91 Unspecified atrial fibrillation; D64.9 Anemia, unspecified; E11.9 Type 2 diabetes mellitus without complications; E78.5 Hyperlipidemia, unspecified